=== PATIENT | male | born 1955 | race Caucasian/White ===

== ENCOUNTER 2016-08-17 04:37 | Day surgery (SDC) | payer BC ==
[2016-08-17] VITALS (20 sets, daily range): BP systolic 117–175; BP diastolic 56–99
[~2016-08-17] VITALS: Ht 177.8 cm; Wt 93.6 kg
[2016-08-17] MEDS ORDERED: KETOROLAC 30 MG/ML (TORADOL) 1 ML VIAL IV ONE (05:10)
[2016-08-17] MEDS ORDERED: SODIUM CHLORIDE FLUSH 10 ML SYR IV PRN (05:10)
[2016-08-17] MEDS ORDERED: SODIUM CHLORIDE FLUSH 3 ML SYR IV ONE (05:10)
[2016-08-17] MEDS ORDERED: ONDANSETRON 2 MG/ML (Z0FRAN) 2 ML VIAL IV ONE (05:10)
[2016-08-17 05:22] LABS: MEAN CORPUSCULAR HEMOGLOBIN 27.9 PG (26.0-34.0); MEAN CORPUSCULAR HGB CONC 34.4 g/dL (31.0-37.0); MEAN CORPUSCULAR VOLUME 81 FL (80-100); MEAN PLATELET VOLUME 10.5 FL (6.0-9.5); PLATELET COUNT 319 10^3uL (150-450); WHITE BLOOD COUNT 13.91 10^3uL (4.0-11.0)
[2016-08-17 05:30] LABS: ALBUMIN 4.1 g/dL (3.4-5.0); ANION GAP 15.5 MEQ/L (3-15); CALCULATED IONIZED CALCIUM 4.3 mg/dL (3.8-4.6); TOTAL PROTEIN 6.8 g/dL (6.4-8.5)
[2016-08-17 05:49] LABS: BAND NEUTROPHILS % 0 % (0-6); EOSINOPHILS % 1 % (0-4); MONOCYTES # 0.3 #; MONOCYTES % 2 % (3-11); SEGMENTED NEUTROPHILS % 90 % (51-67); TOTAL CELLS COUNTED 100
[2016-08-17 05:50] LABS: ANISOCYTOSIS SLIGHT; POIKILOCYTOSIS SLIGHT; RBC MORPH SEE REFERENCE (NORMAL)
[2016-08-17] MEDS: LACTATED RINGERS 1,000 ML IV SCH ×5 (05:56→07:50)
[2016-08-17 06:36] LABS: BILIRUBIN,URINE Negative (Negative); CLARITY,URINE Cloudy; COLOR,URINE Yellow; GLUCOSE, URINE (UA) Negative (Negative); LEUKOCYTE ESTERASE ,URINE Negative (Negative); UROBILINOGEN,URINE 0.2 mg/dL (0.2-1.0)
[2016-08-17] MEDS ORDERED: ceFAZolin 2,000 MG in SODIUM CHLORIDE 100 ML IV ONE (06:50)
[2016-08-17] MEDS ORDERED: BUPIVACAINE/EPINEPHRINE 0.25%-1:200,000 (MARCAINE) 30 ML VIAL INJ ONE (07:49)
[2016-08-17] MEDS ORDERED: ROCURONIUM 50 MG/5 ML (ZEMURON) VIAL IV ONE ×2 (08:08→09:05)
[2016-08-17] MEDS ORDERED: PROPOFOL 20 ML IV ONE (08:08)
[2016-08-17] MEDS ORDERED: ALFENTANIL 500 MCG/ML (ALFENTA) 5 ML AMP IV ONE (08:09)
[2016-08-17] MEDS ORDERED: ePHEDrine SULFATE 50 MG/ML 1 ML AMP ONE (08:33)
[2016-08-17] MEDS ORDERED: NEOSTIGMINE 1 MG/ML SYRINGE ONE (09:28)
[2016-08-17] MEDS ORDERED: KETOROLAC 60 MG/2 ML (TORADOL) VIAL IM ONE (09:28)
[2016-08-17] MEDS ORDERED: GLYCOPYRROLATE 0.2 MG/ML (ROBINUL) 1 ML VIAL ONE (09:28)
[2016-08-17] MEDS ORDERED: LACTATED RINGERS 1,000 ML IV SCH (09:59)
[2016-08-17] MEDS ORDERED: morphine INJ 4 MG/ML 1 ML SYRINGE IV PRN (10:00)
[2016-08-17] MEDS ORDERED: ACETAMINOPHEN 325 MG TAB (TYLENOL) PO PRN (10:00)
[2016-08-17] MEDS ORDERED: ONDANSETRON 2 MG/ML (Z0FRAN) 2 ML VIAL IV PRN (10:00)
[2016-08-17] MEDS: oxyCODONE IMMEDIATE RELEASE 5 MG (OXYIR) TAB PO PRN (12:35)
[2016-08-17] MEDS ORDERED: CALCIUM CARBONATE CHEWABLE 300 MG (TUMS) TABLET PO PRN (18:55)
[2016-08-18] MEDS: oxyCODONE IMMEDIATE RELEASE 5 MG (OXYIR) TAB PO PRN ×2 (01:09→02:30)
[2016-08-18 07:45] VITALS: BP 160/100
[2016-08-18] MEDS ORDERED: morphine INJ 2 MG/ML 1 ML SYRINGE IV PRN (08:35)
[2016-08-18] MEDS ORDERED: NS FLUSH 3 ML PRN IV (08:35)
[2016-08-18] MEDS ORDERED: NS FLUSH 3 ML DAILY IV SCH (09:00)
== END 2016-08-18 13:39 | disposition home or self-care (01) ==
LOC: ED 04:44 → ASC 07:05 → MED/SURG 09:00 → ASC 08-18 13:39
PROVIDERS: ATTEND Surgery
PROC: 0WQF0ZZ Repair Abdominal Wall, Open Approach (ICD-10-PCS; principal; 2016-08-17)
DX: K42.9 Umbilical hernia without obstruction or gangrene (principal); I10 Essential (primary) hypertension; E66.8 Other obesity; Z68.29 Body mass index [BMI] 29.0-29.9, adult; Z87.891 Personal history of nicotine dependence
CPT/HCPCS: 36415; 49587; 74150; 80053; 81003; 85025; 85610; 96365; 96375; 99284; J0690; J1885; J2405; J2710; J3490; J7050; J7120